=== PATIENT | female | born 1955 | race Caucasian/White ===

== ENCOUNTER 2017-10-19 18:57 | Emergency (ER) | payer MEDICAID, OTHER ==
[~2017-10-19] VITALS: Ht 165.1 cm; Wt 68.0 kg
[2017-10-19 19:27] VITALS: BP 139/96
== END 2017-10-20 01:16 | disposition home or self-care (01) ==
LOC: ER 18:57
DX: S01.01XA Laceration without foreign body of scalp, initial encounter (principal); M62.838 Other muscle spasm; W18.39XA Other fall on same level, initial encounter; Y93.89 Activity, other specified; Y92.89 Other specified places as the place of occurrence of the external cause; Y99.8 Other external cause status; Z88.1 Allergy status to other antibiotic agents
CPT/HCPCS: 70450; 72125